=== PATIENT | female | born 1945 | race Caucasian/White ===

== ENCOUNTER 2016-11-26 14:16 | Inpatient (IN) | payer MEDICARE ==
[~2016-11-26] VITALS: Ht 165.1 cm; Wt 75.0 kg
--- NOTE | ~2016-11-26 | ECH ---
Transthoracic Echocardiography Report (TTE) Demographics Patient Name KARISHMA NICOLE Date of Study 11/27/2016 Patient Number [id number] Visit Number [id number] Date of 1945 Room Number 423 Accession Number [id number] Gender Female Age 71 year(s) Referring Mehdi Crook MD Power Lineman Technician Tracy Medrano Physician Alirio Ahuja RDCS, MD Physician Interpreting David Sheikh MD Plumbing Instructor Physician Supervising Ordering Physician Alirio Ahuja MD/HANY BUTTS Nurse Stress Fruit Sorter Conclusions Summary Technically difficult exam. The estimated left ventricular ejection fraction is 55-60%. Mild tricuspid regurgitation by color Doppler. There is mild pulmonary hypertension. The pulmonary pressure (RVSP) is 37 mmHg. Procedure Type of Study TTE procedure:Echo Complete SF. Procedure Date Date: 11/27/2016 Start: 11:07 AM Technical Quality: Fair due to poor acoustical window. Indications:Atrial fibrillation and Hypertension. Appropriate Use Criteria: 9 Height: 665 inches Weight: 139 pounds BSA: 9.15 m Rhythm: Atrial fibrillation HR: 106 bpm BP: 114/76 mmHg M-Mode/2D Measurements LV Diastolic Dimension: 4.14 cm LV Systolic Dimension: 3.45 cm LV Septum Diastolic: 0.7 cm LV PW Diastolic: 0.73 cm AO Root Dimension: 2.42 cm Cardiac Output: 4.92 l/min LA Dimension: 3.5 cm Cardiac Index: 0.54 l/min*m RV Diastolic Dimension: 2.22 cm LA volume index: 5 ml/m LVOT: 1.88 cm LVOT VTI: 16.73 cm RV Base: 3.1 cm LV Stroke volume: 46.42 ml RV Mid: 2 cm LV Stroke volume index: 5.07 ml/m TAPSE: 2.9 cm TDI-S': 10 cm/s Doppler Measurements AV Peak Velocity: 1.1 m/s MV Peak E-Wave: 1.11 m/s AV Peak Gradient: 4.84 mmHg AV Mean Gradient: 2.64 mmHg MV P1/2t: 43.9 msec LVOT Peak Velocity: 0.85 m/s AV Area (Continuity):2.57 cm MV Area (PHT): 5.01 cm TR Velocity:2.69 m/s PV Peak Velocity: 0.84 m/s TR Gradient:28.94 mmHg PV Peak Gradient: 2.84 mmHg Estimated RAP:8 mmHg Estimated PASP: 36.94 mmHg Estimated RVSP: 37 mmHg E' Septal Velocity: 0.14 m/s E' Lateral Velocity: 0.14 m/s RA Area: 14.97 cm Findings Left Ventricle Normal left ventricle size and function. Diastolic function indeterminate due to patient's arrhythmia. Right Ventricle Normal right ventricle structure and function. Left Atrium Normal left atrial size. Right Atrium Normal right atrial size. Mitral Valve Mild mitral annular calcification. Trivial mitral regurgitation by color Doppler. Aortic Valve The aortic valve was not well imaged. The aortic valve is mildly sclerotic. Tricuspid Valve Normal tricuspid valve structure and function. Mild tricuspid regurgitation by color Doppler. There is mild pulmonary hypertension. The pulmonary pressure (RVSP) is 37 mmHg. Pulmonic Valve The pulmonic valve is not well visualized. Pericardial Effusion No evidence of pericardial effusion. Miscellaneous Ascending aorta not well visualized. Pleural Effusion No evidence of pleural effusion. Signature
[~2016-11-26 14:16] MED LIST: ASMANEX110 MC1 IH; DELTASONE DPS20 MG PO; DUONEB DPS3 ML IH; NORVASC5 MG PO; PULMICORT0.5 MG/2 M IH; SYNTHROID75 MCG PO; VIBRAMYCIN-DPS100 M2 PO
--- NOTE | 2016-11-30 13:05 | CO ---
ADMIT: 11/26/2016 RM/LOC: 423 [facility] MR#: [id number] [address] [address] ELIS NICOLE 1511 07[address] [place] [id number] Consultation SEX: F AGE: 71 : 1945 DATE OF CONSULTATION: 11/28/2016 ATTENDING PHYSICIAN: Latrice Amezquita CONSULTING PHYSICIAN: Kelton Nicholas MD REASON FOR CONSULT: New-onset atrial fibrillation. Joslyn Van RN, scribing for Dr. Kelton Nicholas. HISTORY OF PRESENT ILLNESS: Elis is a pleasant 71-year-old female, I have been asked see in Cardiology consultation by Dr. Latrice Amezquita for atrial fibrillation new onset. She has no prior history of coronary artery disease. She did have a normal stress test at [facility] in May of 2015. She was seen in April of that year by Dr. Sevilla, and she has not followed up since. She did undergo stress test and echocardiogram that were essentially normal. Elis has history of hypertension, hyperlipidemia, and tobacco use quitting in February of last year after a 59-pack year history. She also has significant family history of premature coronary artery disease. She follows with Dr. Sandhya Morris regularly outside of the hospital. Elis has history of COPD and was admitted with increased shortness of breath for the last few weeks progressively getting worse to the point where she arrived. She states that her oxygen saturation was in the 60s. She was put on oxygen in the emergency room and in the hospital and that has helped more than anything she reports. She also has reported palpitations especially with activity feeling like her heart is irregular and fast. She states that it has been ongoing for the last month. Since admission, her breathing has improved. She did have some increased edema prior to hospitalization but that is resolved. She did note that prior to presenting to the hospital, she was having to sleep in the recliner for the last few weeks because of severe shortness of breath with orthopnea. She denies any chest discomfort, and while she continues to have shortness of breath, she feels that is more due to her cough and congestion that is being treated by primary care. On EKG, she is having atrial fibrillation. Initially, her heart rate was relatively well controlled. It appears like it is being getting faster, she has been here up to 170 to 150s. PAST MEDICAL HISTORY: 1. Chronic obstructive pulmonary disease. 2. Hypertension. 3. Hyperlipidemia. 4. Former tobacco use. 5. Hypothyroidism. PAST SURGICAL HISTORY: Includes partial thyroidectomy. ALLERGIES: NO KNOWN MEDICATION ALLERGIES. MEDICATIONS: Current medications include: 1. Cardizem 120 daily. ADMIT: 11/26/2016 RM/LOC: 423 [facility] MR#: [id number] [id number] [address] BONNIEELIS NICOLE [facility] [address] [place] [address] Consultation SEX: F AGE: 71 : 1945 2. Coumadin 5 daily. 3. Deltasone 40 daily. 4. Synthroid 75 mcg daily. 5. DuoNeb q.6 hours. 6. Lovenox 90 mg subcu daily. 7. Vibramycin 100 mg IV q.12 hours. FAMILY HISTORY: Positive family history of premature coronary artery disease. Her mom had a myocardial infarction at the age of 36. Brother had a myocardial infarction at the age of 38. Dad from a heart attack at the age of 54. Mom also from a stroke. Maternal grandmother from a heart attack at the age of 44. SOCIAL HISTORY: Elis is . She lives at home with her . She is retired. She drinks 3 to 4 pots of coffee a day. Denies any special diet, alcohol, or drug use. She quit smoking in February of last year after smoking at least a pack a day for about 59 years. REVIEW OF SYSTEMS: GENERAL: Reports increased fatigue over the last 2 weeks. Weight gain gradual over the last few weeks as well, unsure how many pounds. She denies any fever. EYES: Denies double vision, blurred vision, cataracts, or glaucoma. THROAT, MOUTH, and EARS: Mild sinus congestion. Denies hearing loss or problems with nose, mouth or throat. RESPIRATORY: History of COPD. Denies cough, sputum production, asthma, emphysema or bronchitis. Denies snoring loudly, wakefulness at night, or fatigue upon awakening. GASTROINTESTINAL: History of heartburn. Denies difficulty swallowing. No change in bowel habits. Denies dark or bloody stools. No history of ulcers, hiatal hernia, or gallbladder or liver disease. GENITOURINARY: Denies dysuria, hematuria, nocturia, urinary tract infection, or kidney stones. Denies history of renal insufficiency or failure. MUSCULOSKELETAL: History of osteoarthritis. Denies gout or muscle pains. ENDOCRINE: Hypothyroidism positive. Denies diabetes. HEMATOLOGIC: Denies history of anemia, easy bruising, or cancer. NEUROLOGIC: Denies chronic headaches, dizziness, syncope, stroke, seizures or numbness or tingling. PSYCHIATRIC: Denies history of mental illness or feelings of depression. PHYSICAL EXAMINATION: VITAL SIGNS: Blood pressure 122/74, heart rate 87, respirations 24, temperature 97.6, oxygenation 91% on O2. SKIN: [place], warm and dry. EYES: Sclerae clear. No xanthelasmas. ENT: Oral mucosa is pink and moist. No jugular venous distention or carotid bruits. LUNGS: Distant breath sounds. Coarse breath sounds throughout. HEART: Irregularly irregular. No murmurs, gallops, or rubs. ABDOMEN: Soft and nontender. ADMIT: 11/26/2016 RM/LOC: 423 [facility] MR#: [id number] [id number] [address] ELIS NICOLE 1511 07[address] [place] [address] Consultation SEX: F AGE: 71 : 1945 MUSCULOSKELETAL: Gait is normal. EXTREMITIES: Peripheral pulses palpable. No clubbing, cyanosis or edema. PSYCHIATRIC: Alert and oriented. Mood and affect are appropriate. DIAGNOSTIC DATA: Sodium 139, potassium 4.2, BUN 13, creatinine 0.8, glucose 148, TSH 0.316, INR 1.12. Echocardiogram on 11/27, showed EF of 55% to 60% with mild pulmonary hypertension. ASSESSMENT AND PLAN: 1. Atrial fibrillation possible symptoms for the last month. Her heart rate is borderline high, likely secondary to hypertension and her lung disease. I would start with rate control and anticoagulation. She has already been started on Coumadin by primary care. I would give additional 120 mg of Cardizem now, and then change dosage to 240 daily. If she continues to have symptoms, I would consider direct current cardioversion. 2. Chronic obstructive pulmonary disease. 3. Hypertension. 4. Hyperlipidemia. I would consider stress test later as an outpatient. Thank you for the consultation. I have read and agree with the documentation that has been completed regarding this visit. By signing this record, I attest that the documentation was completed in my physical presence and is an accurate record of the encounter. Joslyn Van RN / Kelton Nicholas MD / priyanka JOB #: [id number] CC: Latrice Amezquita, Attending Physician Latrice Amezquita, Family Physician
[2016-12-01] MEDS ORDERED: CARDIZEM CD240 M1 PO (08:20)
[2016-12-01] MEDS ORDERED: COUMADIN4 MG PO (08:21)
[2016-12-01] MEDS ORDERED: MUCINEX600 MG PO (08:24)
--- NOTE | 2016-12-09 08:19 | ER ---
ADMIT: 11/26/2016 RM/LOC: 423 [facility] MR#: [id number] [address] [address] KARISHMA NICOLE 15[address] [place] [address] Emergency Room Report SEX: F AGE: 71 : 1945 DATE: 11/26/2016 ADDENDUM: A 71-year-old white female, patient of Dr. Morris coming in for essentially COPD exacerbation. She is not septic. Her CBC, chemistry is negative. Lactate is negative. Chest x-ray and EKG, nothing acute. At this time, I spoke with Dr. Amezquita. We have given her a couple of DuoNeb, Decadron 20. She will admit for chronic obstructive pulmonary disease with exacerbation and acute bronchitis. CONDITION ON DISCHARGE: Fair. Eleazar Wheeler MD/ modl JOB #: [id number] CC: Latrice Amezquita MD, Attending Physician Latrice Amezquita MD, Family Physician
--- NOTE | 2016-12-14 12:10 | DS ---
ADMIT: 11/26/2016 RM/LOC: 423 [facility] MR#: [id number] [address] [address] KARISHMA NICOLE 15[address] [place] [address] Discharge Summary SEX: F AGE: 71 : 1945 ADMISSION DATE: 11/26/2016 DISCHARGE DATE: 11/29/2016 DISCHARGE DIAGNOSES: 1. Dyspnea. 2. Acute hypoxemic respiratory failure. 3. COPD (chronic obstructive pulmonary disease). 4. Atrial fibrillation with rapid ventricular response. 5. Hypothyroidism, over replaced. 6. Chronic obstructive pulmonary disease with acute exacerbation. 7. Hypertension. HOSPITAL COURSE: The patient was admitted. She was placed on a high dose IV steroids, IV antibiotics, did require medication for her rapid heart rate. Overall, she was switched from amlodipine to diltiazem and actually did much better with her heart rate. She was feeling much better. The plan was for her to be discharged home. She was started on Coumadin. Her oxygen was weaned down to 2 liters, but she did require 2 L at all times. DISCHARGE INSTRUCTIONS: 1. Cardizem 240 p.o. daily. 2. Coumadin 4 mg p.o. daily. 3. Prednisone 40 mg p.o. daily x5. 4. Synthroid 75 mcg p.o. daily. 5. DuoNeb q.6 hours and Pulmicort b.i.d. 6. Doxycycline 100 mg p.o. b.i.d. x5. She is to follow up with an INR on Sunday at Dr. Alexander's office, follow up with Dr. Alexander in 1 week. Latrice Amezquita MD/ mendy JOB #: [id number] CC: Latrice Amezquita MD, Attending Physician Latrice Amezquita MD, Family Physician
--- NOTE | 2016-12-21 11:38 | HP ---
ADMIT: 11/26/2016 RM/LOC: 423 [facility] MR#: [id number] [address] [address] KARISHMA NICOLE 1511 07[address] [place] [address] History and Physical SEX: F AGE: 71 : 1945 DATE OF SERVICE: CHIEF COMPLAINT: Cough and shortness of breath. HISTORY OF PRESENT ILLNESS: The patient is a 71-year-old female. She has a past medical history significant for COPD, hypertension, hyperlipidemia, who presented to the hospital with two weeks of increased dyspnea. She reports that she had called in to see her doctor and was unable to be seen by them and called in some antibiotics. She reports that she was not really feeling any better. Notes that she had phlegm productive of yellow phlegm. She had been taking one week of antibiotics at the time of admission, but really did not feel better. She denies any fevers or chills. Reports that she has been eating less. Reports she has had some new lower extremity edema. Otherwise nothing else has seemed to make her symptoms better or worse and she really did not have any other associated symptoms. PAST MEDICAL HISTORY: Significant for: 1. Hypertension. 2. COPD. 3. Hyperlipidemia. 4. History of tobacco use. 5. Hypothyroidism. SURGERIES: Include previous partial thyroidectomy. ALLERGIES: NO KNOWN MEDICAL ALLERGIES. MEDICATIONS: Her med list at home is: 1. Levothyroxine 88 mcg p.o. daily. 2. She previously was on Augmentin 875 one p.o. b.i.d. She is on that for one week. 3. Amlodipine 5 mg p.o. daily. SOCIAL HISTORY: She is , lives at home with her . She is retired. She drinks 3-4 pots of coffee a day. Does not have any smoking, quit about one year ago and previously smoked a pack a day for about 59 years. FAMILY HISTORY: Positive for heart disease in her mother at age 36. Brother had a heart attack at 38. Father of a heart attack at 54. Mom from a stroke. Maternal grandmother of a heart attack at 44. REVIEW OF SYSTEMS: Obtained, was otherwise essentially negative. PHYSICAL EXAMINATION: GENERAL: She is thin. She is in no apparent distress. HEENT: Pupils are equal, round, and reactive. Oropharynx is very dry mucous membranes. NECK: Supple. HEART: Distant but normal rate with an irregularly irregular rhythm. LUNGS: Have diminished breath sounds with expiratory wheezes right greater ADMIT: 11/26/2016 RM/LOC: 423 [facility] MR#: [id number] [id number] [place] [address] KARISHMA NICOLE 15[address] 07[address] [place] [address] History and Physical SEX: F AGE: 71 : 1945 than left. ABDOMEN: Soft. Bowel sounds are present. EXTREMITIES: Have trace to 1+ lower extremity edema. ASSESSMENT AND PLAN: 1. Chronic obstructive pulmonary disease with acute exacerbation. At this time, we will go ahead and admit her. We will give her IV steroids, IV antibiotics, and monitor closely. We will give her oxygen p.r.n. also. 2. Irregular heart rhythm. We will start with an EKG. 3. Hypertension. Continue current medication. 4. Hypothyroidism. We will go ahead and check a TSH. Otherwise, we will follow along. Latrice Amezquita MD/ jenyl JOB #: [id number] CC: Latrice Amezquita MD, Attending Physician Latrice Amezquita MD, Family Physician
[2017-03-01] MEDS ORDERED: CARDIZEM CD240 M1 PO (09:37)
[2017-03-01] MEDS ORDERED: LEVOTHYROXINE88 MCG PO (09:37)
[2017-03-01] MEDS ORDERED: COUMADIN5 MG PO (09:37)
[2017-03-01] MEDS ORDERED: COUMADIN4 MG PO (09:38)
[2017-03-01] MEDS ORDERED: TAMBOCOR100 MG PO (09:38)
[2017-03-01] MEDS ORDERED: PULMICORT0.5 MG/21 IH (09:38)
[2017-03-01] MEDS ORDERED: DUONEB DPS3 ML IH (09:38)
[2017-03-01] MEDS ORDERED: VITAMIN D31000 UNIT PO (09:38)
[2017-03-01] MEDS ORDERED: TYLENOL DPS325 MG PO (09:39)
[2017-03-01] MEDS ORDERED: SENOKOT-S TABL1 EACH PO (09:39)
[2017-03-01] MEDS ORDERED: ULTRAM DPS50 MG PO (09:39)
== END 2016-11-29 12:00 | disposition home or self-care (01) | DRG 190 ==
LOC: ER 14:16 → 4PCU 16:30
PROVIDERS: ADMIT Internal Medicine
DX: J44.1 Chronic obstructive pulmonary disease with (acute) exacerbation (principal); J96.01 Acute respiratory failure with hypoxia; I48.91 Unspecified atrial fibrillation; J44.9 Chronic obstructive pulmonary disease, unspecified; E03.9 Hypothyroidism, unspecified; I10 Essential (primary) hypertension; E78.5 Hyperlipidemia, unspecified; Z87.891 Personal history of nicotine dependence; Z82.49 Family history of ischemic heart disease and other diseases of the circulatory system; Z66 Do not resuscitate

== ENCOUNTER 2017-01-09 12:05 | Day surgery (SDC) | payer MEDICARE ==
[~2017-01-09] VITALS: Ht 165.1 cm; Wt 63.2 kg
--- NOTE | ~2017-01-09 | ECH ---
Transesophageal Echocardiography Report (NELIDA) Demographics Patient Name KARISHMA NICOLE Date of Study 01/09/2017 Patient Number [id number] Visit Number [id number] Date of 1945 Room Number Accession Number [id number] Gender Female Age 71 year(s) Referring Cristopher BUTTS Associate Dean Lucille Reich [facility] Physician Kelton Guerra MD Physician Interpreting Cristopher BUTTS Software Configuration Manager Physician Kelton Supervising Ordering Physician Cristopher BUTTS MD/HANY Melara Nurse Mp [employer] Stress Hair Salon Manager The procedure was explained in detail to the patient. Risks, complications and alternative treatments were reviewed. Written consent was obtained. Conclusions Contractility Score Summary Normal Left Ventricular contractility was noted. Summary The estimated left ventricular ejection fraction is 60% in underlying atrial fibrillation. There is no evidence of a patent foramen ovale by saline bubble study . There is no evidence of thrombus in the left atrium or the left atrial appendage. Mild atherosclerosis noted in aorta. Mild tricuspid regurgitation. Recommendation The patient was given the results of the exam during their hospital stay. Procedure Type of Study NELIDA procedure:NELIDA SF. Procedure Date Date: 01/09/2017 Start: 01:53 Technical Quality: Adequate visualization Indications:Atrial fibrillation. Appropriate Use Criteria: 9 Contrast Medium: Bubble Study. Height: 65 inches Weight: 138.89 pounds BSA: 1.69 m Rhythm: Atrial fibrillation HR: 122 bpm BP: 127/75 mmHg Procedure Informed Consent Procedure consent form obtained. Anesthesia consent obtained. - See anesthesia record Type of Anesthesia: Moderate sedation Findings Mitral Valve Normal mitral valve structure and function. Trivial mitral regurgitation by color Doppler. Aortic Valve Normal aortic valve structure and function. Tricuspid Valve Normal appearing tricuspid valve. Mild tricuspid regurgitation by color Doppler. Pulmonic Valve Normal pulmonic valve structure and function. Signature
[~2017-01-09 12:05] MED LIST changes: +CARDIZEM CD240 M1 PO; +COUMADIN4 MG PO; +MUCINEX600 MG PO
--- NOTE | 2017-01-22 06:39 | CVR ---
ADMIT: 01/09/2017 RM/LOC: [facility] MR#: [id number] [id number] [address] ELIS NICOLE 15[address] [place] [address] Cardioversion Report SEX: F AGE: 71 : 1945 DATE: 01/09/2017 INDICATION: Elis is a 71-year-old female, who presented with persistent atrial fibrillation. She has underlying COPD, but is having worsening shortness of breath. So, we elected to proceed with direct current cardioversion. The patient had a NELIDA performed beforehand to ensure no left atrial appendage thrombus as she had a recent subtherapeutic INR. PROCEDURE: The patient was sedated by Anesthesia with propofol and after the NELIDA was completed, she received 120-joule biphasic shock which was unsuccessful. She then received a 200 joule biphasic synchronized shock which was also unsuccessful. She then received a 200 joule biphasic synchronized shock with anterior pressure to the defibrillation pad and again this was unsuccessful. COMPLICATIONS: None. SUMMARY: Unsuccessful cardioversion. RECOMMENDATIONS: We will discuss re-attempt cardioversion with higher dose flecainide versus rate control strategy. Kelton Nicholas MD/ priyanka JOB #: [id number] CC: Kelton Nicholas, Attending Physician Sandhya Morris, Family Physician
[2017-03-01] MEDS ORDERED: COUMADIN5 MG PO (09:37)
[2017-03-01] MEDS ORDERED: LEVOTHYROXINE88 MCG PO (09:37)
[2017-03-01] MEDS ORDERED: CARDIZEM CD240 M1 PO (09:37)
[2017-03-01] MEDS ORDERED: PULMICORT0.5 MG/21 IH (09:38)
[2017-03-01] MEDS ORDERED: DUONEB DPS3 ML IH (09:38)
[2017-03-01] MEDS ORDERED: COUMADIN4 MG PO (09:38)
[2017-03-01] MEDS ORDERED: VITAMIN D31000 UNIT PO (09:38)
[2017-03-01] MEDS ORDERED: TAMBOCOR100 MG PO (09:38)
[2017-03-01] MEDS ORDERED: TYLENOL DPS325 MG PO (09:39)
[2017-03-01] MEDS ORDERED: ULTRAM DPS50 MG PO (09:39)
[2017-03-01] MEDS ORDERED: SENOKOT-S TABL1 EACH PO (09:39)
== END 2017-01-09 16:19 | disposition home or self-care (01) ==
LOC: SSS 12:05
DX: I48.1 Persistent atrial fibrillation (principal); J44.9 Chronic obstructive pulmonary disease, unspecified; I10 Essential (primary) hypertension; F17.210 Nicotine dependence, cigarettes, uncomplicated; I25.10 Atherosclerotic heart disease of native coronary artery without angina pectoris; E07.9 Disorder of thyroid, unspecified; Z79.01 Long term (current) use of anticoagulants; Z82.49 Family history of ischemic heart disease and other diseases of the circulatory system; Z79.899 Other long term (current) drug therapy